=== PATIENT | male | born 1960 | race African-American/Black ===

== ENCOUNTER 2021-07-16 08:17 | Emergency (ER) | payer OTHER ==
[~2021-07-16] VITALS: Ht 175.3 cm; Wt 76.7 kg
[2021-07-16 08:27] VITALS: BP 158/100
--- NOTE | 2021-07-16 09:03 | NUR ---
DR. SALDIVAR BEDSIDE EVALUATING PT
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
--- NOTE | 2021-07-16 09:16 | NUR ---
PT PLACED INTO C-COLLAR PER MD REQUEST
[2021-07-16] MEDS ORDERED: ACETAMINOPHEN 325 MG TAB PO ONE (09:40)
[2021-07-16] MEDS ORDERED: CRUSHER, PILL MC ONE (09:42)
--- NOTE | 2021-07-16 09:44 | NUR ---
PT TAKEN TO CT VIA KITTY
--- NOTE | 2021-07-16 09:48 | NUR ---
PT RETURNED TO BED [address] V[address] [facility]
--- NOTE | 2021-07-16 10:07 | NUR ---
XRAY BEDSIDE WITH PATIENT
--- NOTE | 2021-07-16 10:10 | NUR ---
PATIENT CURRENTLY REQUESTING TO LEAVE AMA AT THIS TIME. PATIENT A&OX4 AND GCS 15. DR. SALDIVAR MADE AWARE AND CALLED TO BEDSIDE TO SPEAK WITH PATIENT
--- NOTE | 2021-07-16 10:29 | NUR ---
PATIENT CURRENTLY A&OX4, GCS 15, AND UNDERSTANABLE OF CURRENT SITUATION Addendum: 07/16/21 at 1038 by [facility] PT SIGNED TRANSFER PAPERWORK AND WILLING TO BE TRANSFERRED TO [facility] FOR HIGHER LEVEL OF CARE
--- NOTE | 2021-07-16 10:30 | NUR ---
PT CURRENTLY REFUSING ANY TYPE OF TREATMENT AT THIS TIME. PT REQUEST TO LEAVE THE HOSPITAL AND REFUSING TRASNFER. DR. SALDIVAR MADE AWARE AND CALLED TO BEDSIDE TO SPEAK WITH PATIENT
[2021-07-16 10:35] VITALS: BP 134/98
--- NOTE | 2021-07-16 10:35 | NUR ---
Patient does not wish to proceed with medical care recommended by DR. SALDIVAR. Patient given information related to possible complications, up to and including , which could occur as a result of leaving hospital at this time. Patient verbalizes understanding of risks involved leaving against medical advice. Patient has signed AMA form.
== END 2021-07-16 10:34 | disposition left against medical advice (07) ==
LOC: MED 08:17
DX: S09.90XA Unspecified injury of head, initial encounter (principal); I60.9 Nontraumatic subarachnoid hemorrhage, unspecified; M54.2 Cervicalgia; M54.50 Low back pain, unspecified; W19.XXXA Unspecified fall, initial encounter; Y93.89 Activity, other specified; Y92.89 Other specified places as the place of occurrence of the external cause; Y99.8 Other external cause status
CPT/HCPCS: 70450; 71045; 72125; 72192; 99291; Q0092